=== PATIENT | male | born 1955 | race African-American/Black ===

== ENCOUNTER 2017-08-26 10:16 | Observation (INO) ==
[2017-08-26] MEDS ORDERED: ONDANSETRON 4 MG/2 ML VIAL IV STA (10:52)
[2017-08-26] MEDS ORDERED: SODIUM CHLORIDE 0.9% 500 ML IV STA (10:52)
[2017-08-26] MEDS ORDERED: MORPHINE 2 MG/1 ML SYRINGE IV STA (10:52)
[2017-08-26] MEDS ORDERED: NITROGLYCERIN 2% OINT 1 INCH/GM PACK TOP STA (10:52)
[2017-08-26] MEDS ORDERED: ALUM/MAG/SIMETH/LIDO VISC 1:1 30 ML BOTTLE PO STA (10:52)
[2017-08-26] MEDS ORDERED: ASPIRIN 325 MG TABLET PO STA (10:52)
[2017-08-26] MEDS ORDERED: PIPERACILLIN/TAZOBACTAM 3,375 MG VIAL IV ONE (11:18)
[2017-08-26] MEDS ORDERED: NITROGLYCERIN 2% OINT 1 INCH/GM PACK TOP ONE (11:27)
[2017-08-26] MEDS ORDERED: ONDANSETRON 4 MG/2 ML VIAL ONE (11:27)
[2017-08-26] MEDS ORDERED: ASPIRIN 325 MG TABLET ONE (11:27)
[2017-08-26] MEDS ORDERED: MORPHINE 2 MG/1 ML SYRINGE ONE (11:27)
[2017-08-26] MEDS ORDERED: ALUM/MAG/SIMETH/LIDO VISC 1:1 30 ML BOTTLE PO ONE (11:28)
[2017-08-26 11:54] LABS: Basophils # 0.1 10*3/uL (0.0-0.2); Basophils % 1.5 % (0.0-0.8); Eosinophils # 0.1 10*3/uL (0.0-0.87); Eosinophils % 2.7 % (0.00-10.9); Hematocrit 44.4 VOL% (42.0-52.0); Hemoglobin 15.1 GM/DL (14.0-18.0); Lymphocytes # 1.3 10*3/uL (1.4-4.0); Lymphocytes % 37.9 % (21.2-54.2); Mean Corpuscular Hemoglobin 28 PG (27-34); Mean Corpuscular Volume 82.7 FL (87-102); Mean Platelet Volume 10.9 FL (9.6-12.0); Monocytes # 0.5 10*3/uL (0.11-0.8); Monocytes % 14.5 % (1.7-12.7); Neutrophils # 1.4 10*3/uL (1.4-7.4); Neutrophils % 43.4 % (38.7-73.9); Platelet Count 212 T/CUMM (130-400); Red Blood Count 5.37 MC/CUMM (3.8-5.5); Red Cell Distribution Width 12.8 % (9.3-17.3); White Blood Count 3.3 T/CUMM (4-12)
[2017-08-26 12:05] LABS: INR 1.1; PT Patient Result 11.4 SECS
[2017-08-26 12:47] LABS: Albumin 3.4 G/DL (3.4-5.0); Bilirubin,Total 0.7 MG/DL (0.2-1.0); Calcium 8.8 MG/DL (8.5-10.1); Magnesium 1.9 MG/DL (1.8-2.4); Osmolality,Calculated 282.4 MOS/KG (273-304); Total Protein 6.9 G/DL (6.4-8.3)
[2017-08-26] MEDS ORDERED: ONDANSETRON 4 MG/2 ML VIAL IV PRN (16:40)
[2017-08-26] MEDS ORDERED: GLUCAGON 1 MG VIAL IM PRN (16:40)
[2017-08-26] MEDS ORDERED: MORPHINE 2 MG/1 ML SYRINGE IV PRN (16:40)
[2017-08-26] MEDS ORDERED: DEXTROSE 50% 25 GM/50 ML VIAL IV PRN (16:40)
[2017-08-26] MEDS ORDERED: PNEUMOCOCCAL VACCINE (13 VALENT) 0.5 ML SYRINGE IM ONE (16:57)
[2017-08-26] MEDS ORDERED: INFLUENZA VIRUS VACCINE 0.5 ML SYRINGE IM ONE (17:00)
[2017-08-26] MEDS: SODIUM CHLORIDE 0.9% 1,000 ML IV SCH (17:36)
[2017-08-26] MEDS: PANTOPRAZOLE 40 MG TABLET PO SCH (17:39)
[2017-08-26] MEDS ORDERED: DILTIAZEM 50 MG/10 ML VIAL IV ONE (17:50)
[2017-08-26] MEDS: INSULIN LISPRO 100 UNIT/ML SUBCUT SCH (23:54)
[2017-08-27] MEDS: SODIUM CHLORIDE 0.9% 1,000 ML IV SCH ×3 (02:19→10:47)
[2017-08-27 04:07] LABS: Apearance,Urine CLEAR (Clear); Bacteria,Urine Occasional /HPF (Few); Bilirubin,Urine Negative (Negative); Blood, Urine Negative (Negative); Calcium Oxalate Crystals,Urine Occasional /HPF (Few); Glucose,Urine (UA) Negative (Negative); Ketones,Urine Negative (Negative); Mucus,Urine Occasional /LPF (Occasional); Nitrite,Urine Negative (Negative); Protein,Urine Negative; Squamous Epithelial Cell,Urine Occasional /HPF (0-10); Urine Color Yellow (Yellow); Urine Specific Gravity 1.026 (1.001-1.035); WBC,Urine <1 /HPF (0-6)
[2017-08-27 05:48] LABS: Basophils # 0.1 10*3/uL (0.0-0.2); Basophils % 1.7 % (0.0-0.8); Eosinophils # 0.1 10*3/uL (0.0-0.87); Eosinophils % 3.3 % (0.00-10.9); Hematocrit 40.3 VOL% (42.0-52.0); Hemoglobin 13.6 GM/DL (14.0-18.0); Immature Granulocytes % 0.3 %; Immature Granulocytes Absolute 0.01 #; Lymphocytes # 1.3 10*3/uL (1.4-4.0); Lymphocytes % 41.3 % (21.2-54.2); Mean Corpuscular HGB Conc 33.7 GM/DL (32-36); Mean Corpuscular Hemoglobin 28 PG (27-34); Mean Corpuscular Volume 82.8 FL (87-102); Mean Platelet Volume 10.9 FL (9.6-12.0); Monocytes # 0.5 10*3/uL (0.11-0.8); Monocytes % 15.5 % (1.7-12.7); Neutrophils # 1.2 10*3/uL (1.4-7.4); Neutrophils % 37.9 % (38.7-73.9); Platelet Count 197 T/CUMM (130-400); Red Blood Count 4.87 MC/CUMM (3.8-5.5); Red Cell Distribution Width 12.7 % (9.3-17.3)
[2017-08-27 06:12] LABS: Eosinophils 4 % (0-10); Lymphocytes 47 % (20-55); Platelet Estimate Normal; Segmented Neutrophils 36 % (50-85); Total Cells Counted 100
[2017-08-27 06:13] LABS: Atypical Lymphocytes Few; Giant Platelets Few; Hypochromasia 1+; Ovalocytes Slight
[2017-08-27 06:24] LABS: Bilirubin,Total 0.9 MG/DL (0.2-1.0); Calcium 8.2 MG/DL (8.5-10.1); Osmolality,Calculated 278.4 MOS/KG (273-304); Potassium 4.2 MMOL/L (3.5-5.1); Risk Ratio 4.78; Total Protein 5.8 G/DL (6.4-8.3); VLDL CHOLESTEROL 23.6 MG/DL
[2017-08-27] MEDS ORDERED: ASPIRIN CHEW 81 MG TABLET PO SCH (09:00)
[2017-08-27] MEDS: INSULIN LISPRO 100 UNIT/ML SUBCUT SCH ×2 (10:13→11:56)
[2017-08-27] MEDS: PANTOPRAZOLE 40 MG TABLET PO SCH (10:58)
[2017-08-27 12:03] VITALS: BP 127/85
== END 2017-08-27 15:37 | disposition home or self-care (01) ==
LOC: N.ED 10:16 → N.EDINP 10:16 → N.TELES 16:47
PROVIDERS: ADMIT Internal Medicine; ATTEND Internal Medicine

== ENCOUNTER 2018-01-20 04:41 | Inpatient (IN) ==
[2018-01-20 05:35] LABS: Basophils % 3.6 % (0.0-0.8); Eosinophils % 1.8 % (0.00-10.9); Hematocrit 43.7 VOL% (42.0-52.0); Hemoglobin 14.7 GM/DL (14.0-18.0); Lymphocytes # 0.7 10*3/uL (1.4-4.0); Lymphocytes % 63.6 % (21.2-54.2); Mean Corpuscular HGB Conc 33.6 GM/DL (32-36); Mean Corpuscular Hemoglobin 28 PG (27-34); Mean Corpuscular Volume 81.7 FL (87-102); Mean Platelet Volume 11.7 FL (9.6-12.0); Monocytes # 0.2 10*3/uL (0.11-0.8); Monocytes % 21.8 % (1.7-12.7); Neutrophils # 0.1 10*3/uL (1.4-7.4); Neutrophils % 9.2 % (38.7-73.9); Platelet Count 163 T/CUMM (130-400); Red Blood Count 5.35 MC/CUMM (3.8-5.5); Red Cell Distribution Width 13.6 % (9.3-17.3); White Blood Count 1.1 T/CUMM (4-12)
[2018-01-20] MEDS ORDERED: MEROPENEM 1,000 MG in SODIUM CHLORIDE 0.9% 100 ML IV STA (05:52)
[2018-01-20 06:06] LABS: Albumin 3.7 G/DL (3.4-5.0); Bilirubin,Total 1.1 MG/DL (0.2-1.0); Calcium 8.9 MG/DL (8.5-10.1); Lymphocytes 78 % (20-55); Osmolality,Calculated 271.1 MOS/KG (273-304); Platelet Estimate Normal; Potassium 3.8 MMOL/L (3.5-5.1); Segmented Neutrophils 11 % (50-85); Total Cells Counted 100; Total Protein 7.6 G/DL (6.4-8.3)
[2018-01-20 06:07] LABS: Atypical Lymphocytes Few; Giant Platelets Few; Hypochromasia 1+
[2018-01-20] MEDS ORDERED: SODIUM CHLORIDE 0.9% 100 ML IV ONE (06:13)
[2018-01-20] MEDS ORDERED: MEROPENEM 1,000 MG VIAL IV ONE (06:13)
[2018-01-20 06:54] LABS: Apearance,Urine CLEAR (Clear); Bilirubin,Urine Negative (Negative); Blood, Urine Negative (Negative); Glucose,Urine (UA) Negative (Negative); Hyaline Casts,Urine 2 /LPF (0-3); Ketones,Urine 5 mg/dL (Negative); Mucus,Urine Few /LPF (Occasional); Nitrite,Urine Negative (Negative); Protein,Urine 30 MG/DL; RBC,Urine <1 /HPF (0-4); Urine Color Amber (Yellow); Urine Specific Gravity 1.028 (1.001-1.035); WBC,Urine <1 /HPF (0-6)
[2018-01-20] MEDS ORDERED: LOPERAMIDE 2 MG CAPSULE PO PRN ×2 (07:51)
[2018-01-20] MEDS ORDERED: LACTULOSE 20 GM/30 ML UDCUP PO PRN (07:51)
[2018-01-20] MEDS ORDERED: diphenhydrAMINE CAP 25 MG CAPSULE PO PRN (07:51)
[2018-01-20] MEDS ORDERED: MYLANTA/LIDO VISC 2:1 300 ML BOTTLE SWISH/SWAL PRN (07:51)
[2018-01-20] MEDS ORDERED: ONDANSETRON 4 MG/2 ML VIAL IV PRN (07:51)
[2018-01-20] MEDS ORDERED: chlorproMAZINE INJ 25 MG in SODIUM CHLORIDE 0.9% 100 ML IV PRN (07:51)
[2018-01-20] MEDS ORDERED: MYLANTA/LIDO VISC 2:1 300 ML BOTTLE SWISH/SPIT PRN (07:51)
[2018-01-20] MEDS ORDERED: guaiFENesin 200 MG/10 ML UDCUP PO PRN (07:51)
[2018-01-20] MEDS ORDERED: ALPRAZolam 0.25 MG TABLET PO PRN (07:51)
[2018-01-20] MEDS ORDERED: MAGNESIUM HYDROXIDE SUSP 30 ML UDCUP PO PRN (07:51)
[2018-01-20] MEDS ORDERED: chlorproMAZINE 25 MG TABLET PO PRN (07:51)
[2018-01-20] MEDS ORDERED: traMADol 50 MG TABLET PO PRN (07:51)
[2018-01-20] MEDS ORDERED: ACETAMINOPHEN 325 MG TABLET PO PRN (07:51)
[2018-01-20] MEDS ORDERED: TEMAZEPAM 7.5 MG CAPSULE PO PRN (07:51)
[2018-01-20] MEDS ORDERED: BENZTROPINE 2 MG/2 ML AMP IV PRN (07:51)
[2018-01-20] MEDS ORDERED: ALUMINUM/MAGNES/SIMETH MAX STR 30 ML UDCUP PO PRN (07:51)
[2018-01-20] MEDS ORDERED: chlorproMAZINE INJ 50 MG in SODIUM CHLORIDE 0.9% 100 ML IV PRN (07:51)
[2018-01-20] MEDS ORDERED: PROMETHAZINE INJ 25 MG in SODIUM CHLORIDE 0.9% 50 ML IV PRN (07:51)
[2018-01-20 08:38] LABS: Troponin I Only < 0.015 NG/ML (0.00-0.045)
[2018-01-20] MEDS: SODIUM CHLORIDE 0.9% 1,000 ML IV SCH ×2 (09:42→23:21)
[2018-01-20] MEDS: FILGRASTIM-SNDZ 300 MCG/0.5 ML SYRINGE SUBCUT SCH (09:43)
[2018-01-20] MEDS: cefTRIAXone 1,000 MG in SYRINGE 1 EACH IV SCH (09:43)
[2018-01-20] MEDS: metFORMIN 500 MG TABLET PO SCH (16:51)
[2018-01-21] MEDS ORDERED: MAGNESIUM OXIDE 400 MG TABLET PO ONE (07:59)
[2018-01-21 08:43] LABS: Basophils % 2.7 % (0.0-0.8); Eosinophils % 1.4 % (0.00-10.9); Hematocrit 39.1 VOL% (42.0-52.0); Hemoglobin 13.5 GM/DL (14.0-18.0); Immature Granulocytes % 0.7 %; Immature Granulocytes Absolute 0.01 #; Lymphocytes # 0.8 10*3/uL (1.4-4.0); Lymphocytes % 54.1 % (21.2-54.2); Mean Corpuscular HGB Conc 34.5 GM/DL (32-36); Mean Corpuscular Hemoglobin 28 PG (27-34); Mean Corpuscular Volume 79.6 FL (87-102); Monocytes # 0.3 10*3/uL (0.11-0.8); Monocytes % 21.6 % (1.7-12.7); Neutrophils # 0.3 10*3/uL (1.4-7.4); Neutrophils % 19.5 % (38.7-73.9); Platelet Count 203 T/CUMM (130-400); Red Blood Count 4.91 MC/CUMM (3.8-5.5); Red Cell Distribution Width 13.8 % (9.3-17.3); White Blood Count 1.5 T/CUMM (4-12)
[2018-01-21] MEDS ORDERED: ASPIRIN CHEW 81 MG TABLET PO SCH (09:00)
[2018-01-21] MEDS ORDERED: HEPARIN LOCK FLUSH 500 UNIT/5 ML SYRINGE IV PRN (09:03)
[2018-01-21 09:06] LABS: Eosinophils 5 % (0-10); Giant Platelets Few; Hypochromasia 1+; Lymphocytes 69 % (20-55); Ovalocytes Slight; Platelet Estimate Adequate; Segmented Neutrophils 13 % (50-85); Total Cells Counted 100
[2018-01-21 09:07] LABS: Atypical Lymphocytes Few
[2018-01-21] MEDS: FILGRASTIM-SNDZ 300 MCG/0.5 ML SYRINGE SUBCUT SCH (09:17)
[2018-01-21] MEDS: metFORMIN 500 MG TABLET PO SCH (09:17)
[2018-01-21] MEDS: cefTRIAXone 1,000 MG in SYRINGE 1 EACH IV SCH (09:18)
[2018-01-21 09:20] LABS: Calcium 8.4 MG/DL (8.5-10.1); Osmolality,Calculated 272.8 MOS/KG (273-304); Potassium 3.8 MMOL/L (3.5-5.1); Total Protein 6.2 G/DL (6.4-8.3)
[2018-01-21] MEDS: SODIUM CHLORIDE 0.9% 1,000 ML IV SCH (12:50)
[2018-01-21 13:49] VITALS: BP 152/90
== END 2018-01-21 13:20 | disposition home or self-care (01) | DRG 660 ==
LOC: N.ED 04:41 → N.EDINP 06:31 → N.4E 06:58
PROVIDERS: ADMIT Specialist; ATTEND Specialist

== ENCOUNTER 2018-02-10 21:05 | Inpatient (IN) ==
[2018-02-10] MEDS ORDERED: ALUM/MAG/SIMETH/LIDO VISC 1:1 30 ML BOTTLE PO STA (23:05)
[2018-02-10] MEDS ORDERED: ONDANSETRON 4 MG/2 ML VIAL IV STA (23:05)
[2018-02-10] MEDS ORDERED: PANTOPRAZOLE 40 MG VIAL IV STA (23:05)
[2018-02-10] MEDS ORDERED: SODIUM CHLORIDE 0.9% 500 ML IV STA (23:05)
[2018-02-10] MEDS ORDERED: hydrALAZINE 20 MG/1 ML VIAL IV STA (23:07)
[2018-02-11 00:08] LABS: Basophils % 3.4 % (0.0-0.8); Hematocrit 41.6 VOL% (42.0-52.0); Hemoglobin 14.3 GM/DL (14.0-18.0); Immature Granulocytes % 0.9 %; Immature Granulocytes Absolute 0.01 #; Lymphocytes # 0.7 10*3/uL (1.4-4.0); Lymphocytes % 63.8 % (21.2-54.2); Mean Corpuscular HGB Conc 34.4 GM/DL (32-36); Mean Corpuscular Hemoglobin 28 PG (27-34); Mean Corpuscular Volume 80.3 FL (87-102); Mean Platelet Volume 11.5 FL (9.6-12.0); Monocytes # 0.2 10*3/uL (0.11-0.8); Monocytes % 16.4 % (1.7-12.7); Neutrophils # 0.2 10*3/uL (1.4-7.4); Neutrophils % 15.5 % (38.7-73.9); Platelet Count 186 T/CUMM (130-400); Red Blood Count 5.18 MC/CUMM (3.8-5.5); Red Cell Distribution Width 13.6 % (9.3-17.3); White Blood Count 1.2 T/CUMM (4-12)
[2018-02-11 00:30] LABS: Alanine Aminotransferase 66 U/L (16-61); Albumin 3.9 G/DL (3.4-5.0); Alkaline Phosphatase 145 U/L (45-117); Amylase 33 U/L (25-115); Aspartate Amino Transferase 67 U/L (0-37); Blood Urea Nitrogen 9 MG/DL (7-18); Calcium 9.4 MG/DL (8.5-10.1); Glucose 121 MG/DL (74-106); Lactic Acid 2.3 MMOL/L (0.4-2.0); Lymphocytes 76 % (20-55); Osmolality,Calculated 269.1 MOS/KG (273-304); Potassium 4.5 MMOL/L (3.5-5.1); Segmented Neutrophils 10 % (50-85); Sodium 135 MMOL/L (136-145); Total Cells Counted 100; Total Protein 7.9 G/DL (6.4-8.3); Troponin I Only < 0.015 NG/ML (0.00-0.045)
[2018-02-11] MEDS ORDERED: MAGNESIUM SULF RIDER 2 GM in PREMIX 1 EACH IV STA (00:42)
[2018-02-11 00:43] LABS: Apearance,Urine Slightly Hazy (Clear); Bilirubin,Urine Negative (Negative); Blood, Urine Negative (Negative); Glucose,Urine (UA) Negative (Negative); Ketones,Urine 5 mg/dL (Negative); Mucus,Urine Many /LPF (Occasional); Nitrite,Urine Negative (Negative); Protein,Urine 100 MG/DL; RBC,Urine <1 /HPF (0-4); Squamous Epithelial Cell,Urine Occasional /HPF (0-10); Urine Color Amber (Yellow); Urine Urobilinogen < 2.0 EU/DL (0.2-1.0); WBC,Urine 3 /HPF (0-6)
[2018-02-11] MEDS ORDERED: PIPERACILLIN/TAZOBACTAM 3,375 MG in SODIUM CHLORIDE 0.9% 100 ML IV SCH (01:00)
[2018-02-11] MEDS ORDERED: SODIUM CHLORIDE 0.9% 1,000 ML IV STA (02:14)
[2018-02-11] MEDS ORDERED: MORPHINE 4 MG/1 ML VIAL IV STA (03:02)
[2018-02-11] MEDS ORDERED: ONDANSETRON 4 MG/2 ML VIAL IV STA (03:03)
[2018-02-11] MEDS ORDERED: PROMETHAZINE 25 MG/1 ML VIAL IM PRN (04:58)
[2018-02-11] MEDS ORDERED: ACETAMINOPHEN 325 MG TABLET PO PRN (04:58)
[2018-02-11] MEDS ORDERED: DEXTROSE 50% 25 GM/50 ML VIAL IV PRN (05:09)
[2018-02-11] MEDS ORDERED: GLUCAGON 1 MG VIAL IM PRN (05:09)
[2018-02-11 05:34] LABS: Basophils # 0.1 10*3/uL (0.0-0.2); Basophils % 4.5 % (0.0-0.8); Hematocrit 37.2 VOL% (42.0-52.0); Hemoglobin 13.1 GM/DL (14.0-18.0); Immature Granulocytes % 0.9 %; Immature Granulocytes Absolute 0.01 #; Lymphocytes # 0.8 10*3/uL (1.4-4.0); Mean Corpuscular HGB Conc 35.2 GM/DL (32-36); Mean Corpuscular Hemoglobin 28 PG (27-34); Mean Corpuscular Volume 79.1 FL (87-102); Monocytes # 0.2 10*3/uL (0.11-0.8); Monocytes % 14.3 % (1.7-12.7); Neutrophils # 0.2 10*3/uL (1.4-7.4); Neutrophils % 13.3 % (38.7-73.9); Platelet Count 191 T/CUMM (130-400); Red Cell Distribution Width 13.9 % (9.3-17.3); White Blood Count 1.1 T/CUMM (4-12)
[2018-02-11 05:49] LABS: Partial Thromboplastin Time 29.3 SECS (0-40)
[2018-02-11 05:53] LABS: Albumin 3.5 G/DL (3.4-5.0); Calcium 8.5 MG/DL (8.5-10.1); Osmolality,Calculated 272.8 MOS/KG (273-304); Potassium 4.4 MMOL/L (3.5-5.1); Total Protein 6.7 G/DL (6.4-8.3)
[2018-02-11 05:58] LABS: Band Neutrophils 1 % (0-10); Eosinophils 1 % (0-10); Giant Platelets Few; Hypochromasia 1+; Lymphocytes 74 % (20-55); Ovalocytes Slight; Platelet Estimate Adequate; Segmented Neutrophils 11 % (50-85); Total Cells Counted 100
[2018-02-11 05:59] LABS: Atypical Lymphocytes Few
[2018-02-11] MEDS: SODIUM CHLORIDE 0.9% 1,000 ML IV SCH ×3 (06:22→21:37)
[2018-02-11] MEDS ORDERED: PIPERACILLIN/TAZOBACTAM 4.5 MG in SODIUM CHLORIDE 0.9% 100 ML IV SCH (06:33)
[2018-02-11] MEDS: PIPERACILLIN/TAZOBACTAM 3,375 MG in SODIUM CHLORIDE 0.9% 100 ML IV SCH ×3 (06:54→23:33)
[2018-02-11] MEDS: MORPHINE 4 MG/1 ML VIAL IV PRN ×2 (07:15→20:19)
[2018-02-11] MEDS: INSULIN LISPRO 100 UNIT/ML SUBCUT SCH ×4 (07:30→21:09)
[2018-02-11] MEDS ORDERED: metFORMIN 500 MG TABLET PO SCH (08:00)
[2018-02-11] MEDS ORDERED: PANTOPRAZOLE 40 MG TABLET PO SCH (09:00)
[2018-02-11] MEDS: FLUCONAZOLE INJ 400 MG in PREMIX 1 EACH IV SCH (09:18)
[2018-02-11] MEDS: ENOXAPARIN 40 MG/0.4 ML SYRINGE SUBCUT SCH (09:19)
[2018-02-11] MEDS: PANTOPRAZOLE 40 MG VIAL IV SCH ×2 (09:19→20:19)
[2018-02-11] MEDS: NYSTATIN 500,000 UNIT/5 ML UDCUP SWISH/SWAL SCH ×4 (09:19→20:18)
[2018-02-11] MEDS: FILGRASTIM-SNDZ 300 MCG/0.5 ML SYRINGE SUBCUT SCH (09:19)
[2018-02-11] MEDS: ASPIRIN CHEW 81 MG TABLET PO SCH (09:20)
[2018-02-11] MEDS: ALUM/MAG/SIMETH/LIDO VISC 1:1 30 ML BOTTLE PO SCH ×3 (09:28→16:33)
[2018-02-11] MEDS: ONDANSETRON 4 MG/2 ML VIAL IV PRN (20:24)
[2018-02-12 03:07] LABS: Basophils # 0.1 10*3/uL (0.0-0.2); Basophils % 3.5 % (0.0-0.8); Hematocrit 34.7 VOL% (42.0-52.0); Hemoglobin 11.8 GM/DL (14.0-18.0); Immature Granulocytes % 3.5 %; Immature Granulocytes Absolute 0.05 #; Lymphocytes # 0.7 10*3/uL (1.4-4.0); Lymphocytes % 47.6 % (21.2-54.2); Mean Corpuscular Hemoglobin 28 PG (27-34); Mean Corpuscular Volume 82.2 FL (87-102); Mean Platelet Volume 11.4 FL (9.6-12.0); Monocytes # 0.3 10*3/uL (0.11-0.8); Monocytes % 19.6 % (1.7-12.7); Neutrophils # 0.4 10*3/uL (1.4-7.4); Neutrophils % 25.8 % (38.7-73.9); Platelet Count 194 T/CUMM (130-400); Red Blood Count 4.22 MC/CUMM (3.8-5.5); White Blood Count 1.4 T/CUMM (4-12)
[2018-02-12 03:36] LABS: Calcium 8.3 MG/DL (8.5-10.1); Osmolality,Calculated 274.7 MOS/KG (273-304); Potassium 4.3 MMOL/L (3.5-5.1)
[2018-02-12] MEDS: MORPHINE 4 MG/1 ML VIAL IV PRN ×4 (04:03→21:37)
[2018-02-12 04:21] LABS: Lymphocytes 64 % (20-55); Segmented Neutrophils 18 % (50-85); Total Cells Counted 100
[2018-02-12 04:22] LABS: Atypical Lymphocytes Few; Platelet Estimate Adequate; Target Cells Few; Tear Drop Cells Slight
[2018-02-12] MEDS: ALUM/MAG/SIMETH/LIDO VISC 1:1 30 ML BOTTLE PO SCH ×3 (14:54→17:26)
[2018-02-12] MEDS: INSULIN LISPRO 100 UNIT/ML SUBCUT SCH ×3 (14:55→21:30)
[2018-02-12] MEDS: NYSTATIN 500,000 UNIT/5 ML UDCUP SWISH/SWAL SCH ×4 (14:56→21:28)
[2018-02-12] MEDS ORDERED: PROPOFOL 200 MG/20 ML VIAL IV ONE (15:17)
[2018-02-12] MEDS ORDERED: LIDOCAINE 1% 5 ML VIAL ONE (15:17)
[2018-02-12] MEDS: PIPERACILLIN/TAZOBACTAM 3,375 MG in SODIUM CHLORIDE 0.9% 100 ML IV SCH ×2 (17:24)
[2018-02-12] MEDS: ASPIRIN CHEW 81 MG TABLET PO SCH (17:25)
[2018-02-12] MEDS: ENOXAPARIN 40 MG/0.4 ML SYRINGE SUBCUT SCH (17:25)
[2018-02-12] MEDS: METOCLOPRAMIDE 10 MG/10 ML UDCUP PO SCH ×2 (17:26→21:29)
[2018-02-12] MEDS: ONDANSETRON 4 MG/2 ML VIAL IV PRN (17:26)
[2018-02-12] MEDS: PANTOPRAZOLE 40 MG VIAL IV SCH ×2 (17:26→21:28)
[2018-02-12] MEDS: SODIUM CHLORIDE 0.9% 1,000 ML IV SCH ×2 (17:27)
[2018-02-12] MEDS: FILGRASTIM-SNDZ 300 MCG/0.5 ML SYRINGE SUBCUT SCH (17:43)
[2018-02-12] MEDS: FLUCONAZOLE INJ 400 MG in PREMIX 1 EACH IV SCH (21:33)
[2018-02-13] MEDS: SODIUM CHLORIDE 0.9% 1,000 ML IV SCH ×3 (00:41→22:37)
[2018-02-13] MEDS: PIPERACILLIN/TAZOBACTAM 3,375 MG in SODIUM CHLORIDE 0.9% 100 ML IV SCH (01:50)
[2018-02-13] MEDS: MORPHINE 4 MG/1 ML VIAL IV PRN ×3 (02:51→17:45)
[2018-02-13 05:35] LABS: Basophils # 0.1 10*3/uL (0.0-0.2); Basophils % 2.4 % (0.0-0.8); Eosinophils % 0.3 % (0.00-10.9); Hematocrit 34.9 VOL% (42.0-52.0); Hemoglobin 11.6 GM/DL (14.0-18.0); Immature Granulocytes % 13.2 %; Immature Granulocytes Absolute 0.49 #; Lymphocytes # 0.8 10*3/uL (1.4-4.0); Lymphocytes % 20.8 % (21.2-54.2); Mean Corpuscular HGB Conc 33.2 GM/DL (32-36); Mean Corpuscular Hemoglobin 27 PG (27-34); Mean Corpuscular Volume 82.3 FL (87-102); Mean Platelet Volume 10.9 FL (9.6-12.0); Monocytes # 0.6 10*3/uL (0.11-0.8); Monocytes % 14.8 % (1.7-12.7); NRBC # 0.04 10*3/uL; Neutrophils # 1.8 10*3/uL (1.4-7.4); Neutrophils % 48.5 % (38.7-73.9); Platelet Count 226 T/CUMM (130-400); Red Blood Count 4.24 MC/CUMM (3.8-5.5); Red Cell Distribution Width 14.1 % (9.3-17.3); White Blood Count 3.7 T/CUMM (4-12)
[2018-02-13 06:09] LABS: Atypical Lymphocytes Few; Band Neutrophils 8 % (0-10); Eosinophils 1 % (0-10); Lymphocytes 35 % (20-55); Nucleated Red Blood Cells 0 (0-5); Segmented Neutrophils 47 % (50-85); Total Cells Counted 100
[2018-02-13 06:10] LABS: Hypochromasia 1+; Microcytosis 1+; Ovalocytes Slight
[2018-02-13 06:11] LABS: Platelet Estimate Normal
[2018-02-13] MEDS: INSULIN LISPRO 100 UNIT/ML SUBCUT SCH ×4 (07:28→21:32)
[2018-02-13] MEDS: ALUM/MAG/SIMETH/LIDO VISC 1:1 30 ML BOTTLE PO SCH ×3 (07:55→17:44)
[2018-02-13] MEDS: ASPIRIN CHEW 81 MG TABLET PO SCH (10:14)
[2018-02-13] MEDS: ENOXAPARIN 40 MG/0.4 ML SYRINGE SUBCUT SCH (10:14)
[2018-02-13] MEDS: METOCLOPRAMIDE 10 MG/10 ML UDCUP PO SCH ×4 (10:14→21:36)
[2018-02-13] MEDS: PANTOPRAZOLE 40 MG VIAL IV SCH (10:15)
[2018-02-13] MEDS: NYSTATIN 500,000 UNIT/5 ML UDCUP SWISH/SWAL SCH ×4 (10:15→21:35)
[2018-02-13] MEDS: FLUCONAZOLE INJ 400 MG in PREMIX 1 EACH IV SCH (10:24)
[2018-02-13] MEDS: FILGRASTIM-SNDZ 300 MCG/0.5 ML SYRINGE SUBCUT SCH (10:25)
[2018-02-13] MEDS: ACETAMINOPHEN 325 MG TABLET PO PRN (21:36)
[2018-02-14] MEDS: ACETAMINOPHEN 325 MG TABLET PO PRN ×2 (02:08→07:14)
[2018-02-14] MEDS: SODIUM CHLORIDE 0.9% 1,000 ML IV SCH (06:28)
[2018-02-14 07:18] LABS: Basophils # 0.1 10*3/uL (0.0-0.2); Basophils % 0.5 % (0.0-0.8); Eosinophils % 0.1 % (0.00-10.9); Hematocrit 35.6 VOL% (42.0-52.0); Hemoglobin 12.1 GM/DL (14.0-18.0); Immature Granulocytes % 19.5 %; Immature Granulocytes Absolute 2.75 #; Lymphocytes # 1.1 10*3/uL (1.4-4.0); Lymphocytes % 7.5 % (21.2-54.2); Mean Corpuscular Hemoglobin 28 PG (27-34); Mean Platelet Volume 10.8 FL (9.6-12.0); Monocytes # 1.8 10*3/uL (0.11-0.8); Monocytes % 12.7 % (1.7-12.7); NRBC # 0.12 10*3/uL; Neutrophils # 8.4 10*3/uL (1.4-7.4); Neutrophils % 59.7 % (38.7-73.9); Platelet Count 228 T/CUMM (130-400); Red Blood Count 4.34 MC/CUMM (3.8-5.5); Red Cell Distribution Width 14.4 % (9.3-17.3); White Blood Count 14.1 T/CUMM (4-12)
[2018-02-14 07:50] LABS: Band Neutrophils 6 % (0-10); Hypochromasia 1+; Lymphocytes 21 % (20-55); Nucleated Red Blood Cells 1 (0-5); Segmented Neutrophils 61 % (50-85); Total Cells Counted 100
[2018-02-14 07:52] LABS: Platelet Estimate Adequate
[2018-02-14] MEDS: INSULIN LISPRO 100 UNIT/ML SUBCUT SCH ×2 (08:49→11:55)
[2018-02-14] MEDS: FLUCONAZOLE INJ 400 MG in PREMIX 1 EACH IV SCH (08:50)
[2018-02-14] MEDS: METOCLOPRAMIDE 10 MG/10 ML UDCUP PO SCH ×2 (09:33→11:55)
[2018-02-14] MEDS: ASPIRIN CHEW 81 MG TABLET PO SCH (09:34)
[2018-02-14] MEDS: NYSTATIN 500,000 UNIT/5 ML UDCUP SWISH/SWAL SCH ×2 (09:34→15:01)
[2018-02-14] MEDS: ALUM/MAG/SIMETH/LIDO VISC 1:1 30 ML BOTTLE PO SCH ×2 (09:35→11:55)
[2018-02-14] MEDS: ENOXAPARIN 40 MG/0.4 ML SYRINGE SUBCUT SCH (09:39)
[2018-02-14] MEDS ORDERED: HEPARIN LOCK FLUSH 500 UNIT/5 ML SYRINGE IV ONE (11:05)
[2018-02-14 11:29] VITALS: BP 159/90
== END 2018-02-14 14:52 | disposition home or self-care (01) | DRG 48 ==
LOC: N.ED 21:05 → N.EDINP 02-11 04:25 → N.3E 02-11 05:37

== ENCOUNTER 2019-07-08 20:03 | Inpatient (IN) ==
[2019-07-08 20:48] LABS: Basophils % 1.6 % (0.0-0.8); Hematocrit 40.1 VOL% (42.0-52.0); Hemoglobin 13.9 GM/DL (14.0-18.0); Immature Granulocytes % 2.3 %; Immature Granulocytes Absolute 0.03 #; Lymphocytes # 0.3 10*3/uL (1.4-4.0); Lymphocytes % 23.4 % (21.2-54.2); Mean Corpuscular HGB Conc 34.7 GM/DL (32-36); Mean Corpuscular Volume 79.9 FL (87-102); Monocytes % 12.5 % (1.7-12.7); Neutrophils % 60.2 % (38.7-73.9); Platelet Count 49 T/CUMM (130-400); Red Blood Count 5.02 MC/CUMM (3.8-5.5); Red Cell Distribution Width 20.1 % (9.3-17.3); White Blood Count 1.3 T/CUMM (4-12)
[2019-07-08 20:55] LABS: INR 1.5; PT Patient Result 15.9 SECS (9.6-12.2)
[2019-07-08 21:08] LABS: Albumin 1.8 G/DL (3.4-5.0); Bilirubin,Total 1.5 MG/DL (0.2-1.0); Calcium 7.8 MG/DL (8.5-10.1); Total Protein 4.8 G/DL (6.4-8.3)
[2019-07-08 21:35] LABS: Band Neutrophils 8 % (0-10); Lymphocytes 16 % (20-55); Microcytosis Slight; Platelet Estimate Decreased; Polychromasia Slight; Segmented Neutrophils 64 % (50-85); Total Cells Counted 100
[2019-07-08] MEDS ORDERED: LEVOFLOXACIN INJ 750 MG in PREMIX 1 EACH IV STA (21:41)
[2019-07-08] MEDS ORDERED: CEFEPIME 2,000 MG in SODIUM CHLORIDE 0.9% 100 ML IV STA (22:40)
[2019-07-08] MEDS ORDERED: VANCOMYCIN INJ 1,000 MG in SODIUM CHLORIDE 0.9% 250 ML IV STA (22:40)
[2019-07-08] MEDS ORDERED: CEFEPIME 2,000 MG VIAL ONE (23:37)
[2019-07-08] MEDS ORDERED: MORPHINE 4 MG/1 ML VIAL IV PRN (23:43)
[2019-07-08] MEDS ORDERED: BISACODYL 5 MG TABLET PO PRN (23:43)
[2019-07-08] MEDS ORDERED: diphenhydrAMINE CAP 25 MG CAPSULE PO PRN (23:43)
[2019-07-08] MEDS ORDERED: guaiFENesin/DM ER 600-30 MG TABLET PO PRN (23:43)
[2019-07-08] MEDS ORDERED: NICOTINE 21 MG/24 HR PATCH TRANSDERM PRN (23:43)
[2019-07-09] MEDS ORDERED: HYDROmorphone 2 MG TABLET PO PRN (01:24)
[2019-07-09] MEDS: SODIUM CHLORIDE 0.9% 1,000 ML IV SCH ×3 (01:30→17:17)
[2019-07-09] MEDS: ALBUTEROL/IPRATROPIUM 3 ML NEB RESP TX SCH ×4 (02:28→20:31)
[2019-07-09 02:57] LABS: Basophils % 0.9 % (0.0-0.8); Hematocrit 38.6 VOL% (42.0-52.0); Hemoglobin 13.2 GM/DL (14.0-18.0); Immature Granulocytes % 4.5 %; Immature Granulocytes Absolute 0.05 #; Lymphocytes # 0.3 10*3/uL (1.4-4.0); Lymphocytes % 26.8 % (21.2-54.2); Mean Corpuscular HGB Conc 34.2 GM/DL (32-36); Mean Corpuscular Volume 79.9 FL (87-102); Monocytes % 5.4 % (1.7-12.7); Neutrophils % 62.4 % (38.7-73.9); Platelet Count 41 T/CUMM (130-400); Red Blood Count 4.83 MC/CUMM (3.8-5.5); Red Cell Distribution Width 20.3 % (9.3-17.3); White Blood Count 1.1 T/CUMM (4-12)
[2019-07-09 03:17] LABS: Albumin 1.7 G/DL (3.4-5.0); Bilirubin,Total 1.6 MG/DL (0.2-1.0); Calcium 7.7 MG/DL (8.5-10.1); Osmolality,Calculated 271.1 MOS/KG (273-304); Total Protein 4.7 G/DL (6.4-8.3)
[2019-07-09 04:03] LABS: Band Neutrophils 1 % (0-10); Lymphocytes 13 % (20-55); Segmented Neutrophils 81 % (50-85); Total Cells Counted 100
[2019-07-09 04:04] LABS: Anisocytosis 1+; Ovalocytes 1+; Poikilocytosis 1+; Polychromasia Slight
[2019-07-09 04:05] LABS: Platelet Estimate Decreased
[2019-07-09] MEDS: CEFEPIME 1,000 MG in SODIUM CHLORIDE 0.9% 100 ML IV SCH ×3 (07:30→18:21)
[2019-07-09] MEDS ORDERED: FILGRASTIM-SNDZ 300 MCG/0.5 ML SYRINGE SUBCUT SCH (09:00)
[2019-07-09] MEDS: VANCOMYCIN INJ 1,250 MG in SODIUM CHLORIDE 0.9% 250 ML IV SCH (14:00)
[2019-07-09 18:33] LABS: Apearance,Urine CLEAR (Clear); Bilirubin,Urine Negative (Negative); Blood, Urine Small mg/dL (Negative); Calcium Oxalate Crystals,Urine Few /HPF (Few); Glucose,Urine (UA) Negative (Negative); Hyaline Casts,Urine 2 /LPF (0-3); Ketones,Urine Negative (Negative); Mucus,Urine Occasional /LPF (Occasional); Nitrite,Urine Negative (Negative); Protein,Urine 100 MG/DL; RBC,Urine 3 /HPF (0-4); Squamous Epithelial Cell,Urine Occasional /HPF (0-10); Urine Color Amber (Yellow); Urine Specific Gravity 1.044 (1.001-1.035); WBC,Urine 2 /HPF (0-6)
[2019-07-09] MEDS: SPIRONOLACTONE 25 MG TABLET PO SCH (21:46)
[2019-07-10] MEDS: CEFEPIME 1,000 MG in SODIUM CHLORIDE 0.9% 100 ML IV SCH ×5 (00:23→23:44)
[2019-07-10] MEDS: ALBUTEROL/IPRATROPIUM 3 ML NEB RESP TX SCH ×4 (00:41→20:45)
[2019-07-10] MEDS: SODIUM CHLORIDE 0.9% 1,000 ML IV SCH ×2 (00:58→20:19)
[2019-07-10] MEDS: VANCOMYCIN INJ 1,250 MG in SODIUM CHLORIDE 0.9% 250 ML IV SCH ×2 (00:59→13:42)
[2019-07-10 01:16] LABS: Basophils % 0.4 % (0.0-0.8); Hematocrit 38.8 VOL% (42.0-52.0); Hemoglobin 13.3 GM/DL (14.0-18.0); Immature Granulocytes % 1.1 %; Immature Granulocytes Absolute 0.08 #; Lymphocytes # 0.4 10*3/uL (1.4-4.0); Lymphocytes % 5.7 % (21.2-54.2); Mean Corpuscular HGB Conc 34.3 GM/DL (32-36); Mean Corpuscular Volume 81.3 FL (87-102); Monocytes % 2.5 % (1.7-12.7); Neutrophils % 90.3 % (38.7-73.9); Platelet Count 51 T/CUMM (130-400); Red Blood Count 4.77 MC/CUMM (3.8-5.5); Red Cell Distribution Width 20.3 % (9.3-17.3); White Blood Count 7.5 T/CUMM (4-12)
[2019-07-10 01:34] LABS: Albumin 1.6 G/DL (3.4-5.0); Bilirubin,Total 1.4 MG/DL (0.2-1.0); Calcium 7.5 MG/DL (8.5-10.1); Total Protein 4.6 G/DL (6.4-8.3)
[2019-07-10 02:44] LABS: Band Neutrophils 1 % (0-10); Lymphocytes 1 % (20-55); Platelet Estimate Decreased; Polychromasia Few; Segmented Neutrophils 95 % (50-85); Target Cells Few; Total Cells Counted 100
[2019-07-10] MEDS: FUROSEMIDE 40 MG/4 ML VIAL IV SCH ×2 (09:06→16:06)
[2019-07-10] MEDS: SPIRONOLACTONE 25 MG TABLET PO SCH ×2 (09:06→21:23)
[2019-07-10] MEDS ORDERED: MAGNESIUM SULF RIDER 4 GM in PREMIX 1 EACH IV PRN (10:50)
[2019-07-10] MEDS ORDERED: MAGNESIUM SULF RIDER 2 GM in PREMIX 1 EACH IV PRN (10:50)
[2019-07-10] MEDS ORDERED: GLUCAGON 1 MG VIAL IM PRN (14:06)
[2019-07-10] MEDS ORDERED: DEXTROSE 50% 25 GM/50 ML VIAL IV PRN (14:06)
[2019-07-10] MEDS: INSULIN REGULAR 100 UNIT/ML SUBCUT SCH ×2 (17:28→20:51)
[2019-07-11] MEDS: VANCOMYCIN INJ 1,250 MG in SODIUM CHLORIDE 0.9% 250 ML IV SCH ×2 (00:48→12:47)
[2019-07-11] MEDS: ALBUTEROL/IPRATROPIUM 3 ML NEB RESP TX SCH ×4 (01:05→21:20)
[2019-07-11 01:49] LABS: Basophils % 0.2 % (0.0-0.8); Hematocrit 35.2 VOL% (42.0-52.0); Hemoglobin 12.1 GM/DL (14.0-18.0); Immature Granulocytes % 5.1 %; Immature Granulocytes Absolute 0.23 #; Lymphocytes # 0.3 10*3/uL (1.4-4.0); Lymphocytes % 6.4 % (21.2-54.2); Mean Corpuscular HGB Conc 34.4 GM/DL (32-36); Mean Corpuscular Volume 80.5 FL (87-102); Monocytes % 3.1 % (1.7-12.7); Neutrophils % 85.2 % (38.7-73.9); Red Blood Count 4.37 MC/CUMM (3.8-5.5); Red Cell Distribution Width 20.3 % (9.3-17.3); White Blood Count 4.5 T/CUMM (4-12)
[2019-07-11 01:50] LABS: Platelet Count 50 T/CUMM (130-400)
[2019-07-11 02:03] LABS: Calcium 7.7 MG/DL (8.5-10.1); Osmolality,Calculated 275.8 MOS/KG (273-304)
[2019-07-11 02:11] LABS: Band Neutrophils 4 % (0-10); Hypochromasia 1+; Lymphocytes 1 % (20-55); Platelet Estimate Decreased; Segmented Neutrophils 91 % (50-85)
[2019-07-11 02:12] LABS: Total Cells Counted 100
[2019-07-11] MEDS: CEFEPIME 1,000 MG in SODIUM CHLORIDE 0.9% 100 ML IV SCH ×3 (05:46→17:42)
[2019-07-11] MEDS: INSULIN REGULAR 100 UNIT/ML SUBCUT SCH ×4 (07:44→20:32)
[2019-07-11] MEDS: ONDANSETRON 4 MG/2 ML VIAL IV PRN ×3 (08:13→17:45)
[2019-07-11] MEDS: FUROSEMIDE 40 MG/4 ML VIAL IV SCH (08:13)
[2019-07-11] MEDS: SPIRONOLACTONE 25 MG TABLET PO SCH ×2 (08:14→20:50)
[2019-07-11] MEDS: SODIUM CHLORIDE 0.9% 1,000 ML IV SCH (17:42)
[2019-07-12] MEDS: CEFEPIME 1,000 MG in SODIUM CHLORIDE 0.9% 100 ML IV SCH ×4 (00:17→21:27)
[2019-07-12 00:51] LABS: Basophils % 0.4 % (0.0-0.8); Hematocrit 33.8 VOL% (42.0-52.0); Hemoglobin 11.6 GM/DL (14.0-18.0); Immature Granulocytes % 6.1 %; Immature Granulocytes Absolute 0.14 #; Lymphocytes # 0.3 10*3/uL (1.4-4.0); Lymphocytes % 11.4 % (21.2-54.2); Mean Corpuscular HGB Conc 34.3 GM/DL (32-36); Mean Corpuscular Volume 80.9 FL (87-102); Monocytes % 6.6 % (1.7-12.7); Neutrophils % 75.5 % (38.7-73.9); Red Blood Count 4.18 MC/CUMM (3.8-5.5); Red Cell Distribution Width 20.2 % (9.3-17.3); White Blood Count 2.3 T/CUMM (4-12)
[2019-07-12 00:53] LABS: Platelet Count 37 T/CUMM (130-400)
[2019-07-12] MEDS: VANCOMYCIN INJ 1,250 MG in SODIUM CHLORIDE 0.9% 250 ML IV SCH ×2 (00:54→13:11)
[2019-07-12 01:05] LABS: Calcium 7.6 MG/DL (8.5-10.1); Osmolality,Calculated 276.8 MOS/KG (273-304)
[2019-07-12 01:30] LABS: Band Neutrophils 2 % (0-10); Lymphocytes 6 % (20-55); Segmented Neutrophils 86 % (50-85); Total Cells Counted 100
[2019-07-12 01:32] LABS: Anisocytosis 1+
[2019-07-12 01:33] LABS: Platelet Estimate Decreased; Poikilocytosis 1+; Polychromasia Few
[2019-07-12] MEDS: ALBUTEROL/IPRATROPIUM 3 ML NEB RESP TX SCH ×4 (02:03→20:22)
[2019-07-12] MEDS: ONDANSETRON 4 MG/2 ML VIAL IV PRN ×2 (06:09→12:32)
[2019-07-12] MEDS: PROMETHAZINE 25 MG/1 ML VIAL IM PRN ×2 (08:34→15:23)
[2019-07-12] MEDS: INSULIN REGULAR 100 UNIT/ML SUBCUT SCH ×4 (08:35→20:32)
[2019-07-12] MEDS: SPIRONOLACTONE 25 MG TABLET PO SCH ×2 (08:35→21:28)
[2019-07-12] MEDS: FUROSEMIDE 20 MG TABLET PO SCH (08:35)
[2019-07-12] MEDS: FLUCONAZOLE INJ 400 MG in PREMIX 1 EACH IV SCH (15:17)
[2019-07-12] MEDS: FILGRASTIM-SNDZ 300 MCG/0.5 ML SYRINGE SUBCUT SCH (15:17)
[2019-07-12] MEDS: SODIUM CHLORIDE 0.9% 1,000 ML IV SCH (21:16)
[2019-07-13] MEDS: VANCOMYCIN INJ 1,250 MG in SODIUM CHLORIDE 0.9% 250 ML IV SCH ×2 (00:45→18:33)
[2019-07-13 01:07] LABS: Basophils # 0.1 10*3/uL (0.0-0.2); Basophils % 0.4 % (0.0-0.8); Hematocrit 36.7 VOL% (42.0-52.0); Hemoglobin 12.7 GM/DL (14.0-18.0); Immature Granulocytes Absolute 0.12 #; Lymphocytes # 0.5 10*3/uL (1.4-4.0); Lymphocytes % 3.8 % (21.2-54.2); Mean Corpuscular HGB Conc 34.6 GM/DL (32-36); Mean Corpuscular Volume 80.5 FL (87-102); Monocytes % 3.5 % (1.7-12.7); Neutrophils % 91.3 % (38.7-73.9); Platelet Count 46 T/CUMM (130-400); Red Blood Count 4.56 MC/CUMM (3.8-5.5); Red Cell Distribution Width 21.4 % (9.3-17.3); White Blood Count 12.5 T/CUMM (4-12)
[2019-07-13 01:50] LABS: Anisocytosis 1+; Lymphocytes 4 % (20-55); Segmented Neutrophils 91 % (50-85); Total Cells Counted 100
[2019-07-13 01:51] LABS: Platelet Estimate Decreased
[2019-07-13] MEDS: ONDANSETRON 4 MG/2 ML VIAL IV PRN ×3 (02:33→23:11)
[2019-07-13] MEDS: CEFEPIME 1,000 MG in SODIUM CHLORIDE 0.9% 100 ML IV SCH ×4 (02:36→20:41)
[2019-07-13] MEDS: ALBUTEROL/IPRATROPIUM 3 ML NEB RESP TX SCH ×4 (03:12→20:00)
[2019-07-13] MEDS: FUROSEMIDE 20 MG TABLET PO SCH (08:52)
[2019-07-13] MEDS: FILGRASTIM-SNDZ 300 MCG/0.5 ML SYRINGE SUBCUT SCH (08:52)
[2019-07-13] MEDS: SPIRONOLACTONE 25 MG TABLET PO SCH ×2 (08:52→20:42)
[2019-07-13] MEDS: INSULIN REGULAR 100 UNIT/ML SUBCUT SCH ×4 (09:40→20:43)
[2019-07-13] MEDS: FLUCONAZOLE INJ 400 MG in PREMIX 1 EACH IV SCH (16:02)
[2019-07-13] MEDS: SODIUM CHLORIDE 0.9% 1,000 ML IV SCH (23:14)
[2019-07-14] MEDS: ALBUTEROL/IPRATROPIUM 3 ML NEB RESP TX SCH ×4 (00:02→19:04)
[2019-07-14] MEDS: CEFEPIME 1,000 MG in SODIUM CHLORIDE 0.9% 100 ML IV SCH ×4 (02:38→20:50)
[2019-07-14] MEDS: ONDANSETRON 4 MG/2 ML VIAL IV PRN (08:17)
[2019-07-14] MEDS: SPIRONOLACTONE 25 MG TABLET PO SCH ×2 (08:18→20:55)
[2019-07-14] MEDS: FUROSEMIDE 20 MG TABLET PO SCH (08:18)
[2019-07-14] MEDS: INSULIN REGULAR 100 UNIT/ML SUBCUT SCH ×4 (08:21→21:29)
[2019-07-14] MEDS ORDERED: chlorproMAZINE 25 MG TABLET PO PRN (12:20)
[2019-07-14] MEDS ORDERED: PANTOPRAZOLE 40 MG TABLET PO SCH (12:30)
[2019-07-14] MEDS: FLUCONAZOLE INJ 400 MG in PREMIX 1 EACH IV SCH (18:05)
[2019-07-14] MEDS: SODIUM CHLORIDE 0.9% 1,000 ML IV SCH (20:55)
[2019-07-14] MEDS: PANTOPRAZOLE 40 MG VIAL IV SCH (20:55)
[2019-07-14] MEDS: METOCLOPRAMIDE 10 MG/2 ML VIAL IV SCH (23:46)
[2019-07-15] MEDS: ALBUTEROL/IPRATROPIUM 3 ML NEB RESP TX SCH ×4 (00:30→19:42)
[2019-07-15 01:50] LABS: Basophils # 0.1 10*3/uL (0.0-0.2); Basophils % 0.8 % (0.0-0.8); Hematocrit 33.4 VOL% (42.0-52.0); Hemoglobin 11.6 GM/DL (14.0-18.0); Lymphocytes # 0.5 10*3/uL (1.4-4.0); Mean Corpuscular HGB Conc 34.7 GM/DL (32-36); Mean Corpuscular Volume 81.5 FL (87-102); Monocytes % 5.3 % (1.7-12.7); NRBC # 0.02 10*3/uL; Neutrophils % 80.9 % (38.7-73.9); Platelet Count 50 T/CUMM (130-400); Red Cell Distribution Width 21.7 % (9.3-17.3)
[2019-07-15] MEDS: SODIUM CHLORIDE 0.9% 1,000 ML IV SCH (02:24)
[2019-07-15] MEDS: CEFEPIME 1,000 MG in SODIUM CHLORIDE 0.9% 100 ML IV SCH ×4 (02:24→20:28)
[2019-07-15 02:31] LABS: Calcium 7.7 MG/DL (8.5-10.1); Osmolality,Calculated 278.8 MOS/KG (273-304)
[2019-07-15 03:21] LABS: Band Neutrophils 1 % (0-10); Hypochromasia Slight; Lymphocytes 7 % (20-55); Metamyelocytes 1 %; Nucleated Red Blood Cells 1 (0-5); Platelet Estimate Decreased; Polychromasia Few; Segmented Neutrophils 86 % (50-85); Total Cells Counted 100
[2019-07-15] MEDS: METOCLOPRAMIDE 10 MG/2 ML VIAL IV SCH (06:17)
[2019-07-15] MEDS: FUROSEMIDE 20 MG TABLET PO SCH ×2 (08:28→11:24)
[2019-07-15] MEDS: SPIRONOLACTONE 25 MG TABLET PO SCH ×3 (08:28→21:21)
[2019-07-15] MEDS: INSULIN REGULAR 100 UNIT/ML SUBCUT SCH ×4 (08:28→21:21)
[2019-07-15] MEDS: PANTOPRAZOLE 40 MG VIAL IV SCH (08:34)
[2019-07-15] MEDS ORDERED: LINACLOTIDE 145 MCG CAPSULE PO ONE (09:19)
[2019-07-15] MEDS: METOCLOPRAMIDE 10 MG/10 ML UDCUP PO SCH ×3 (11:19→21:21)
[2019-07-15] MEDS: FLUCONAZOLE INJ 400 MG in PREMIX 1 EACH IV SCH (15:49)
[2019-07-15] MEDS ORDERED: PANTOPRAZOLE 40 MG TABLET PO ONE (17:32)
[2019-07-15] MEDS: PANTOPRAZOLE 40 MG TABLET PO SCH (18:03)
[2019-07-16] MEDS: SODIUM CHLORIDE 0.9% 1,000 ML IV SCH (01:38)
[2019-07-16] MEDS: CEFEPIME 1,000 MG in SODIUM CHLORIDE 0.9% 100 ML IV SCH ×3 (01:41→14:30)
[2019-07-16] MEDS: ALBUTEROL/IPRATROPIUM 3 ML NEB RESP TX SCH ×4 (02:19→19:01)
[2019-07-16 03:48] LABS: Basophils % 0.6 % (0.0-0.8); Hematocrit 33.4 VOL% (42.0-52.0); Hemoglobin 11.8 GM/DL (14.0-18.0); Immature Granulocytes % 6.5 %; Immature Granulocytes Absolute 0.32 #; Lymphocytes # 0.5 10*3/uL (1.4-4.0); Lymphocytes % 9.7 % (21.2-54.2); Mean Corpuscular HGB Conc 35.3 GM/DL (32-36); Mean Corpuscular Volume 80.9 FL (87-102); Monocytes % 6.9 % (1.7-12.7); NRBC # 0.03 10*3/uL; Neutrophils % 76.3 % (38.7-73.9); Red Blood Count 4.13 MC/CUMM (3.8-5.5); Red Cell Distribution Width 21.7 % (9.3-17.3); White Blood Count 4.9 T/CUMM (4-12)
[2019-07-16 03:50] LABS: Platelet Count 44 T/CUMM (130-400)
[2019-07-16 04:07] LABS: Calcium 7.8 MG/DL (8.5-10.1); Osmolality,Calculated 277.8 MOS/KG (273-304)
[2019-07-16 04:29] LABS: Band Neutrophils 1 % (0-10); Lymphocytes 7 % (20-55); Metamyelocytes 1 %; Platelet Estimate Decreased; Segmented Neutrophils 83 % (50-85); Total Cells Counted 100
[2019-07-16] MEDS: PANTOPRAZOLE 40 MG TABLET PO SCH ×2 (06:36→20:57)
[2019-07-16] MEDS: SPIRONOLACTONE 25 MG TABLET PO SCH ×2 (08:20→20:57)
[2019-07-16] MEDS: METOCLOPRAMIDE 10 MG/10 ML UDCUP PO SCH ×4 (08:23→20:56)
[2019-07-16] MEDS: INSULIN REGULAR 100 UNIT/ML SUBCUT SCH ×4 (08:23→20:57)
[2019-07-16] MEDS: FUROSEMIDE 20 MG TABLET PO SCH (08:23)
[2019-07-16] MEDS: ACETAMINOPHEN 325 MG TABLET PO PRN (14:32)
[2019-07-16] MEDS: FLUCONAZOLE INJ 400 MG in PREMIX 1 EACH IV SCH (15:03)
[2019-07-17] MEDS: SODIUM CHLORIDE 0.9% 1,000 ML IV SCH ×2 (00:43→11:48)
[2019-07-17] MEDS: ALBUTEROL/IPRATROPIUM 3 ML NEB RESP TX SCH ×3 (00:48→13:25)
[2019-07-17] MEDS: ACETAMINOPHEN 325 MG TABLET PO PRN ×2 (03:24→12:20)
[2019-07-17] MEDS: PANTOPRAZOLE 40 MG TABLET PO SCH (06:09)
[2019-07-17] MEDS: INSULIN REGULAR 100 UNIT/ML SUBCUT SCH ×3 (07:49→11:48)
[2019-07-17] MEDS: METOCLOPRAMIDE 10 MG/10 ML UDCUP PO SCH ×2 (08:51→11:48)
[2019-07-17] MEDS: FUROSEMIDE 20 MG TABLET PO SCH (08:51)
[2019-07-17] MEDS: SPIRONOLACTONE 25 MG TABLET PO SCH (08:51)
[2019-07-17] MEDS ORDERED: INFLUENZA VIRUS VACCINE 0.5 ML SYRINGE IM ONE (12:00)
[2019-07-17 12:16] VITALS: BP 124/93
[2019-07-17] MEDS: FLUCONAZOLE INJ 400 MG in PREMIX 1 EACH IV SCH (14:54)
== END 2019-07-17 15:31 | disposition hospice, home (50) | DRG 139 ==
LOC: EDBD → EDUNIT# → N.ED 20:03 → N.EDINP 23:43 → N.4E 07-09 00:33
PROVIDERS: ADMIT Internal Medicine; ATTEND Internal Medicine